=== PATIENT | female | born 1940 | race Caucasian/White ===

== ENCOUNTER 2018-11-02 15:21 | Emergency (ER) | payer OTHER ==
[~2018-11-02] VITALS: Ht 177.8 cm; Wt 72.6 kg
[2018-11-02] MEDS ORDERED: JANUMET XR 50-1 EAC1 (15:55)
[2018-11-02] MEDS ORDERED: LOSARTAN POTASS25 MG (15:56)
[2018-11-02] MEDS ORDERED: ASPIR 8181 MG (15:56)
[2018-11-02] MEDS ORDERED: LIPITOR20 MG (15:56)
== END 2018-11-02 17:12 | disposition home or self-care (01) ==
LOC: ER 15:21
DX: S00.81XA Abrasion of other part of head, initial encounter (principal); W10.8XXA Fall (on) (from) other stairs and steps, initial encounter; Y93.89 Activity, other specified; Y92.098 Other place in other non-institutional residence as the place of occurrence of the external cause; Y99.8 Other external cause status